=== PATIENT | female | born 1940 | race Caucasian/White ===

== ENCOUNTER → 2022-01-02 08:43 | Outpatient (BNVA) | payer MEDICARE, OTHER, SELFPAY | PROVIDERS: Family Provider Family Medicine; PCP Family Medicine; Visit Provider Anesthesiology Pain Medicine | DX: M51.17 Intervertebral disc disorders with radiculopathy, lumbosacral region (principal); M43.26 Fusion of spine, lumbar region; M53.3 Sacrococcygeal disorders, not elsewhere classified; S32.000A Wedge compression fracture of unspecified lumbar vertebra, initial encounter for closed fracture; X58.XXXA Exposure to other specified factors, initial encounter | CPT/HCPCS: 99205 ==

== ENCOUNTER → 2022-01-23 14:10 | Outpatient (BNVA) | payer MEDICARE, OTHER, SELFPAY | PROVIDERS: Family Provider Family Medicine; PCP Family Medicine; Visit Provider Anesthesiology Pain Medicine | DX: M53.3 Sacrococcygeal disorders, not elsewhere classified (principal) | CPT/HCPCS: G0260; J1030; J3490 ==

== ENCOUNTER → 2022-02-06 09:58 | Outpatient (BNVA) | payer MEDICARE, OTHER, SELFPAY | PROVIDERS: Family Provider Family Medicine; PCP Family Medicine; Visit Provider Anesthesiology Pain Medicine | DX: M43.26 Fusion of spine, lumbar region (principal); M53.3 Sacrococcygeal disorders, not elsewhere classified; S32.000A Wedge compression fracture of unspecified lumbar vertebra, initial encounter for closed fracture; M79.604 Pain in right leg; M79.605 Pain in left leg; X58.XXXA Exposure to other specified factors, initial encounter | CPT/HCPCS: 99213 ==

== ENCOUNTER → 2022-04-03 10:43 | Outpatient (BNVA) | payer MEDICARE, OTHER, SELFPAY | PROVIDERS: Family Provider Family Medicine; PCP Family Medicine; Visit Provider Anesthesiology Pain Medicine | DX: M43.26 Fusion of spine, lumbar region (principal); M53.3 Sacrococcygeal disorders, not elsewhere classified; S32.000A Wedge compression fracture of unspecified lumbar vertebra, initial encounter for closed fracture; X58.XXXA Exposure to other specified factors, initial encounter; M25.561 Pain in right knee; M25.562 Pain in left knee | CPT/HCPCS: 99213 ==

== ENCOUNTER 2022-07-21 12:52 | Emergency (ER) | payer MEDICARE, OTHER, SELFPAY ==
[2022-07-21 13:17] VITALS: BP 127/75; PULSE 86; RESP 16; TEMP 36.5; O2SAT 95; BMI 27.8
--- NOTE | 2022-07-21 13:24 | ED_ITS ---
HPI - Extremity Problem General: Chief complaint: Extremity Injury, Upper Stated complaint: fall, left wrist injury Time Seen by Provider: 07/21/22 13:23 Source: patient Mode of arrival: ambulatory Limitations: other (hard of hearing) History of Present Illness: 81-year-old female presents to the ER today for left wrist pain after falling this morning. Patient reports she tripped and fell and landed on the left wrist. She reports she had immediate pain and swelling in that wrist. She reports she has pain with any movement of the wrist. She has not taking thing for the pain at this time. Patient reports she did fall and hit her head also however denies any dizziness, loss of consciousness, abrasions or bumps on the head. Patient denies taking any blood thinners. Patient denies any changes in vision or blurry vision at this time. Denies any mental status changes. Review of Systems General: Reports: 10 or more systems reviewed and unremarkable except in HPI and below PFSH ED PFSH: Medical History Low back pain Wedge compression fracture of unspecified lumbar vertebra, initial encounter for closed fracture Surgical History Arthrodesis status Social History Smoking and tobacco status: never smoked Second hand smoke exposure: No Alcohol intake: never History of recent travel: No Physical Exam Const: COMMON NORMALS: no acute distress, average body habitus, patient oriented x3, no limitations (hard of hearing), healthy appearing, alert and well nourished Resp: COMMON NORMALS: normal respiratory effort EFFORT & INSPECTION: Yes able to speak in complete sentences Cardio: COMMON NORMALS: regular rate and regular rhythm RATE: regular rate RHYTHM: regular rhythm Extremity: NARRATIVE EXTREMITY EXAM: Patient has a deformity noted of the left wrist. There is tenderness over the distal left radius. No obvious bruising at this time. Moderate swelling noted. Pain with any range of motion of the wrist. Neuro: COMMON NORMALS: patient oriented x3 SENSORIUM/ORIENTATION: Yes alert Psych: COMMON NORMALS: mental status grossly normal, Normal thought process present and cooperative THOUGHT PROCESS: Normal thought process present Skin: COMMON NORMALS: no rashes or lesions noted and no wounds GENERAL SKIN EXAM: no rashes or lesions noted Course ED course: 81-year-old female presents to the ER today for left wrist pain after falling this morning. Patient reports she tripped and fell and landed on the left wrist. She reports she had immediate pain and swelling in that wrist. She reports she has pain with any movement of the wrist. She has not taking thing for the pain at this time. Patient reports she did fall and hit her head also however denies any dizziness, loss of consciousness, abrasions or bumps on the head. Patient denies taking any blood thinners. Patient denies any changes in vision or blurry vision at this time. Denies any mental status changes. We will get an x-ray of the wrist at this time. Patient did hit her head however has no concerns for a bleed. Patient is not currently on blood thinners either. Patient does not wish to have a further exam of her head. Vital Signs: Vital signs: Vital Signs Temperature 97.7 F 07/21/22 13:17 Pulse Rate 86 07/21/22 13:17 Respiratory Rate 16 07/21/22 13:17 Blood Pressure 127/75 07/21/22 13:17 Pulse Oximetry 95 07/21/22 13:17 Oxygen Delivery Me thod 07/21/22 13:17 MDM - Extremity (Nontraumatic) Medical Decision Making 81-year-old female presents to the ER today after a fall this morning. Patient has a deformity of the left wrist along with tenderness. We will get an x-ray at this time. On x-ray, patient has a fracture of the distal radius and ulna. This has very minimal if any displacement. No angulation noted. Patient has an ulnar styloid fracture. Patient's pain is tolerable at this time. We will place patient in a short arm splint. Splint care discussed. Patient should f ollow-up with Ortho next week. Recommend rest, ice, elevation. Take [id number] medications for pain relief. Return to the ER with any new or worsening symptoms. Patient verbalized understanding and was in agreement with the treatment plan. Lab Data Radiology Impressions Wrist X-Ray 07/21/22 13:24 Impression: 1. Fracture of the distal left radius and ulnar styloid. Critical Care Time Critical Care Time: Critical Care Time: No Discharge Plan Discharge Patient Disposition: Home Clinical Impression: Fracture of distal end of left radius and ulna Qualifiers: Encounter type: initial encounter Fracture type: closed Qualified Code(s): S52.502A - Unspecified fracture of the lower end of left radius, initial encounter for closed fracture Condition: Stable Prescriptions: No Action calcium citrate-vitamin D3 [Citracal + D Maximum] 315 mg-6.25 mcg (250 unit) tablet 1 tab PO DAILY betamethasone dipropionate 0.05 % cream 1 applic topical BID PRN docusate sodium 100 mg capsule 100 mg PO BID estradiol 0.01 % (0.1 mg/gram) cream 1 g vaginal .3 TIMES A WEEK Rx Instructions: for 14 days fexofenadine [Allergy Relief (fexofenadine)] 180 mg tablet 180 mg PO DAILY lisinopril-hydrochlorothiazide 20-25 mg tablet 1 tab PO DAILY potassium chloride [Klor-Con M20] 20 mEq tablet,ER particles/crystals 20 meq PO DAILY levothyroxine 75 mcg tablet 75 mcg PO DAILY paroxetine HCl 20 mg tablet 20 mg PO DAILY pantoprazole [Protonix] 40 mg tablet,delayed release (DR/EC) 40 mg PO DAILY simvastatin 80 mg tablet 80 mg PO DAILY cholecalciferol (vitamin D3) 125 mcg (5,000 unit) capsule 125 mcg PO DAILY gabapentin 100 mg capsule 100 mg PO BID Qty: 60 0RF Discharge Orders: Discharge ED (Routine); Ordered 07/21/22 Ordered By: Ange Mcdonald Discharge Diet: Usual diet Discharge Activity: Limit activity as instructed Patient Instructions: Opioid Safety, Pain Management Activity Restrictions/Additional Instructions: Wear splint and do not get wet. Follow-up with Ortho next week. Apply ice to reduce swelling. Take ibuprofen alternated with Tylenol for pain. Return to the ER with any new or worsening symptoms. Coding Level of Care Code ED [employer]ault Custodian for Ruby Fwghulam Exam Detailed
--- NOTE | 2022-07-21 13:24 | XR_ITS ---
WS: [id number] Left wrist, 3 views, 07/21/2022 Clinical Data: fall with deformity Comparison: None. Findings: There is a comminuted fracture of the distal left radius. There is a simple fracture of the ulnar sty loid. The carpal bones are intact. XR/XR wrist LT min 3V* [id number] Impression: 1. Fracture of the distal left radius and ulnar styloid.
[2022-07-21 14:30] VITALS: BP 113/63; PULSE 86; RESP 16; TEMP 36.5; O2SAT 93
--- NOTE | 2022-07-24 08:30 | DCPLANNER ---
Addendum entered by Clare Contreras 07/25/22 14:04: Patient had a follow up appointment scheduled with ortho - patient did attend appointment. Original Note: logistics operations manager had message to schedule a follow up appointment for patient with ortho. logistics operations manager sent patients information to the front office staff at ortho. Patients information will be printed and reviewed. Clinic will call patient with appointment information.
== END 2022-07-21 14:33 | disposition home or self-care (01) ==
PROVIDERS: Emergency Provider Physician Assistant
DX: S52.502A Unspecified fracture of the lower end of left radius, initial encounter for closed fracture (principal); W01.0XXA Fall on same level from slipping, tripping and stumbling without subsequent striking against object, initial encounter
CPT/HCPCS: 29125; 73110; 99283

== ENCOUNTER → 2022-07-25 08:54 | Outpatient (BNVA) | payer MEDICARE, OTHER, SELFPAY | PROVIDERS: Referring Provider Physician Assistant; Visit Provider Physician Assistant | DX: S52.572A Other intraarticular fracture of lower end of left radius, initial encounter for closed fracture (principal); S52.615A Nondisplaced fracture of left ulna styloid process, initial encounter for closed fracture; M13.842 Other specified arthritis, left hand; W19.XXXA Unspecified fall, initial encounter | CPT/HCPCS: 25600; 73110; 99203 ==

== ENCOUNTER 2022-07-25 10:08 | Outpatient (CLI) | payer MEDICARE, OTHER, SELFPAY | END 2022-07-25 10:09 | disposition home or self-care (01) | LOC: SPT 10:10 | PROVIDERS: Visit Provider Physician Assistant | DX: Z46.89 Encounter for fitting and adjustment of other specified devices (principal); S52.502S Unspecified fracture of the lower end of left radius, sequela; S52.602S Unspecified fracture of lower end of left ulna, sequela; X58.XXXS Exposure to other specified factors, sequela | CPT/HCPCS: 97760; L3982 ==

== ENCOUNTER → 2022-08-01 08:57 | Outpatient (BNVA) | payer MEDICARE, OTHER, SELFPAY | PROVIDERS: Visit Provider Physician Assistant | DX: S52.572D Other intraarticular fracture of lower end of left radius, subsequent encounter for closed fracture with routine healing (principal); S52.615D Nondisplaced fracture of left ulna styloid process, subsequent encounter for closed fracture with routine healing; M13.842 Other specified arthritis, left hand; W19.XXXD Unspecified fall, subsequent encounter | CPT/HCPCS: 73110; 99024; 99212 ==

== ENCOUNTER → 2022-08-22 09:47 | Outpatient (BNVA) | payer MEDICARE, OTHER, SELFPAY | PROVIDERS: Visit Provider Physician Assistant | DX: S52.502A Unspecified fracture of the lower end of left radius, initial encounter for closed fracture (principal); S52.602A Unspecified fracture of lower end of left ulna, initial encounter for closed fracture; W19.XXXD Unspecified fall, subsequent encounter | CPT/HCPCS: 73110; 99024; 99212 ==

== ENCOUNTER 2022-08-22 14:29 | Outpatient (CLI) | payer MEDICARE, OTHER, SELFPAY | END 2022-08-22 14:30 | disposition home or self-care (01) | LOC: SPT 14:30 | PROVIDERS: Visit Provider Physician Assistant | DX: Z46.89 Encounter for fitting and adjustment of other specified devices (principal); S52.502D Unspecified fracture of the lower end of left radius, subsequent encounter for closed fracture with routine healing; S52.602D Unspecified fracture of lower end of left ulna, subsequent encounter for closed fracture with routine healing; X58.XXXD Exposure to other specified factors, subsequent encounter | CPT/HCPCS: 97760; L3908 ==

== ENCOUNTER → 2022-09-05 09:38 | Outpatient (BNVA) | payer MEDICARE, OTHER, SELFPAY | PROVIDERS: Visit Provider Physician Assistant | DX: S52.502D Unspecified fracture of the lower end of left radius, subsequent encounter for closed fracture with routine healing (principal); S52.602D Unspecified fracture of lower end of left ulna, subsequent encounter for closed fracture with routine healing; W19.XXXD Unspecified fall, subsequent encounter | CPT/HCPCS: 73110; 99212 ==

== ENCOUNTER → 2024-12-22 08:09 | Outpatient (BNVA) | payer MEDICARE, OTHER, SELFPAY | PROVIDERS: PCP Family Medicine; Visit Provider Orthopaedic Surgery | DX: M25.551 Pain in right hip (principal); M70.71 Other bursitis of hip, right hip | CPT/HCPCS: 73502; 99204 ==

== ENCOUNTER → 2025-01-12 07:42 | Outpatient (BNVA) | payer MEDICARE, OTHER, SELFPAY | PROVIDERS: PCP Family Medicine; Visit Provider Orthopaedic Surgery | DX: M70.61 Trochanteric bursitis, right hip (principal) | CPT/HCPCS: 99213 ==

== ENCOUNTER → 2025-02-03 14:02 | Outpatient (BNVA) | payer MEDICARE, OTHER, SELFPAY | PROVIDERS: PCP Family Medicine; Visit Provider Family Medicine | DX: E03.9 Hypothyroidism, unspecified (principal) | CPT/HCPCS: 84439; 84443 ==

== ENCOUNTER → 2025-02-09 10:58 | Outpatient (BNVA) | payer MEDICARE, OTHER, SELFPAY | PROVIDERS: PCP Family Medicine; Visit Provider Orthopaedic Surgery | DX: M70.61 Trochanteric bursitis, right hip (principal) | CPT/HCPCS: 99213 ==

== ENCOUNTER → 2025-03-02 13:11 | Outpatient (BNVA) | payer MEDICARE, OTHER, SELFPAY | PROVIDERS: PCP Family Medicine; Visit Provider Family Medicine | DX: R39.9 Unspecified symptoms and signs involving the genitourinary system (principal) | CPT/HCPCS: 81000 ==

== ENCOUNTER → 2025-03-24 10:57 | Outpatient (BNVA) | payer MEDICARE, OTHER, SELFPAY | PROVIDERS: PCP Family Medicine; Visit Provider Registered Nurse Neonatal Intensive Care | DX: R39.9 Unspecified symptoms and signs involving the genitourinary system (principal) | CPT/HCPCS: 81000; 87086 ==

== ENCOUNTER → 2025-04-09 14:19 | Outpatient (BNVA) | payer MEDICARE, OTHER, SELFPAY | PROVIDERS: PCP Family Medicine; Visit Provider Family Medicine | DX: I10 Essential (primary) hypertension (principal); E78.00 Pure hypercholesterolemia, unspecified; E03.9 Hypothyroidism, unspecified; N39.0 Urinary tract infection, site not specified; R39.9 Unspecified symptoms and signs involving the genitourinary system | CPT/HCPCS: 80053; 80061; 83630; 84439; 84443; 87086; 87493 ==

== ENCOUNTER 2025-04-10 09:02 | Outpatient (CLI) | payer MEDICARE, OTHER, SELFPAY | END 2025-04-10 09:03 | disposition home or self-care (01) | LOC: LAB 09:03 | PROVIDERS: PCP Family Medicine; Visit Provider Family Medicine | DX: R19.7 Diarrhea, unspecified (principal) | CPT/HCPCS: 83630 ==

== ENCOUNTER → 2025-05-02 10:39 | Outpatient (BNVA) | payer MEDICARE, OTHER, SELFPAY | PROVIDERS: PCP Family Medicine; Visit Provider Registered Nurse Neonatal Intensive Care | DX: R30.0 Dysuria (principal) | CPT/HCPCS: 81000; 87086 ==

== ENCOUNTER 2025-05-17 12:47 | Emergency (ER) | payer MEDICARE, OTHER, SELFPAY ==
[2025-05-17] VITALS (9 sets, daily range): BP systolic 136–181; BP diastolic 60–95; PULSE 61–71; RESP 16; TEMP 36.6; O2SAT 93–97; BMI 28.0
--- OUTSIDE RECORDS SUMMARY | 2025-05-17 12:52 | XMS_ITS | Clinical Summary ---
Author Organization [facility] Address [address] [address] Phone Care Team Providers Care Manager Transfusion Name Role Phone BuchananLeilani gallagher Primary Care Provider [phone] Allergies No known active allergies Medications lisinopril-hydroc hlorothiazide (ZESTORETIC) 20-25 mg Oral tablet Take 1.5 Tabs by mouth daily. Active PARoxetine HCl (PAXIL) 20 mg Oral tablet Take 20 mg by mouth daily. Active simvastatin (ZOCOR) 80 mg Oral tablet Take 80 mg by mouth Daily LATE. 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 Active omeprazole (PRILOSEC) 20 mg Oral CpDR Take 20 mg by mouth daily. Active Potassium 99 mg Tablet Take 1 Tablet by mouth 2 times daily. Active fexofenadine (ASAF) 180 mg tablet Take 180 mg by mouth 1 time daily as needed for Allergies. Active aspirin (ECOTRIN EC) 81 mg Tablet, Delayed Release (E.C.) Take 81 mg by mouth daily. Active ketorolac tromethamine (Acular) 0.5 % solution Administer 1 Drop in both eyes 4 times daily as needed for Pain. Active betamethasone, augmented (DIPROLENE-AF) 0.05 % Cream Apply to affected area 2 times daily as needed. Active calcium carbonate + vitamin D (CALTRATE+D) 600 mg(1,500mg) -400 unit Tablet Take 1 Tablet by mouth 3 times daily. Active yykkz-5-MUA-EPA-f sonia oil (Fish Oil) 1,000 mg Capsule Take 1 Capsule by mouth 3 times daily. 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 [employer] Gender Identity Not on file Sexual Orientation Not on file Last Filed Vital Signs Vital Sign Reading Time Taken Comments Blood Pressure 139/57 04/14/2021 12:49 PM CDT Pulse 74 03/14/2012 1:05 PM CDT Temperature 36.2 C (97.1 F) 04/14/2021 12:49 PM CDT Respiratory Rate 18 04/14/2021 12:49 PM CDT Oxygen Saturation 94% 04/14/2021 12:49 PM CDT Inhaled Oxygen Concentration - - Weight 70.4 kg (155 lb 3.2 oz) 04/14/2021 11:25 AM CDT Height 162.6 cm (5' 4 ) 04/14/2021 11:25 AM CDT Body Mass Index 26.64 04/14/2021 11:25 AM CDT Plan of Treatment Health Maintenance Due Date Last Done Comments ZOSTER VACCINE (1 of 2) 1988 OSTEOPOROSIS SCREENING 2003 DTAP/TDAP/TD VACCINES (1 - Tdap) 09/29/2010 09/28/20, 11/14/2000 RSV VACCINE (60+ or ) (1 - 1-dose 75+ series) 2013 INFLUENZA VACCINE (#1) 2025 9, 08/28/2018, 08/14/2017, Additional history exists PNEUMOCOCCAL VACCINE 50+ YEARS Completed 0 11/27/2017, 03/03/2009, 02/02/2004 Insurance MEDICARE PART [place] Care Teams Manager Transfusion Relationship Specialty Start Date End Date Leilani Buchanan DO [address] [place] [id number] PCP - General 12/30/15
--- OUTSIDE RECORDS SUMMARY | 2025-05-17 12:53 | XMS_ITS | Clinical Summary ---
Author Organization [facility] Address [address] [address] Phone Care Team Providers Care Diesel Dinkey Operator Name Role Phone BuchananLeilani gallagher Primary Care Provider [phone] Allergies No known active allergies Medications calcium carbonate + vitamin D (CALTRATE+D) 600 mg-10 mcg (400 unit) Tablet Take 1 Tablet by mouth 3 times daily. 1 Active aspirin (ECOTRIN EC) 81 mg Tablet, Delayed Release (E.C.) Take 81 mg by mouth daily. 1 Active Potassium 99 mg Tablet Take 1 Tablet by mouth 2 times daily. 1 Active fexofenadine (ASAF) 180 mg tablet Take 180 mg by mouth 1 time daily as needed for Allergies. 1 Active mzrhd-2-LFZ-EPA-f sonia oil 1,000 mg Capsule Take 1 Capsule by mouth 3 times daily. 1 Active ketorolac tromethamine (ACULAR) 0.5 % solution Administer 1 Drop in both eyes 4 times daily as needed for Pain. 1 Active betamethasone, augmented (DIPROLENE-AF) 0.05 % Cream Apply to affected area 2 times daily as needed. 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 Gender Identity Not on file Sexual Orientation Not on file Last Filed Vital Signs Vital Sign Reading Time Taken Comments Blood Pressure 153/55 02/29/2024 1:51 PM CDT Pulse 74 02/29/2024 1:51 PM CDT Temperature 36.6 C (97.8 F) 02/29/2024 1:51 PM CDT Respiratory Rate 18 02/29/2024 1:51 PM CDT Oxygen Saturation 97% 02/29/2024 1:51 PM CDT Inhaled Oxygen Concentration - - Weight 70.4 kg (155 lb 3.2 oz) 04/14/2021 11:25 AM CDT Height 162.6 cm (5' 4 ) 04/14/2021 11:25 AM CDT Body Mass Index 26.64 04/14/2021 11:25 AM CDT Plan of Treatment Health Maintenance Due Date Last Done Comments DTAP/TDAP/TD VACCINES (1 - Tdap) 1957 PNEUMOCOCCAL VACCINE 50+ YEARS (1 of 1 - PCV) 10/04/19 88 ZOSTER VACCINE (1 of 2) 1988 OSTEOPOROSIS SCREENING 2003 RSV VACCINE (60+ or ) (1 - 1-dose 75+ series) 2013 INFLUENZA VACCINE (#1) 2025 Insurance [place] MEDICARE PART A AND B Care Teams Diesel Dinkey Operator Relationship Specialty Start Date End Date Leilani Buchanan DO [address] [facility] [place] [id number] PCP - General 12/30/15
--- NOTE | 2025-05-17 13:22 | CTR_ITS ---
PROCEDURE INFORMATION: Exam: CT Abdomen And Pelvis Without Contrast Exam date and time: 05/17/2025 1:51 PM Age: 84 years old Clinical indication: Abdominal pain; Other: Chandu. Flank pain; Prior surgery; Surgery date: 6+ months; Surgery type: Back, tubal bladder; Had bladder CA; Additional info: Bilat flank pain, question of renal colic TECHNIQUE: Imaging protocol: Computed tomography of the abdomen and pelvis without contrast. Radiation optimization: All CT scans at this facility use at least one of these dose optimization techniques: automated exposure control; mA and/or kV adjustment per patient size (includes targeted exams where dose is matched to clinical indication); or iterative reconstruction. COMPARISON: CR XR hip RT 2-3V wo/w pel* [id number] 12/22/2024 8:11 AM RADIATION DOSE METRICS: Total DLP (mGy-cm): 598.12 FINDINGS: Lungs: Minimal dependent atelectasis is seen in the lung bases. Lung bases otherwise appear clear. Coronary arteries: Coronary artery calcification is present. Liver: Normal appearance of the liver. Gallbladder and biliary ducts: Cholelithiasis is present in the gallbladder. No evidence of cholecystitis. Pancreas: Normal appearance of the pancreas. No ductal dilation. Spleen: Normal appearance of the spleen. Adrenal glands: Normal appearance of both adrenal glands. Kidneys and ureters: Incidental homogeneous hyperdense cyst on the right kidney measuring approximately 1.7 cm with internal density greater than 80 Hounsfield units. Otherwise normal appearance of the kidneys. No hydronephrosis or nephrolithiasis.Normal appearance of both ureters without hydroureter or ureteral stone. Stomach and bowel: Tiny hiatal hernia of the stomach.Normal appearance of the small bowel without luminal dilation suggested. Mild colonic stool throughout. Appendix: No evidence of appendicitis. Intraperitoneal space: Unremarkable. No free air. No significant fluid collection. Vasculature: Pelvic calcifications, likely representing incidental phleboliths. There is mild calcific atherosclerotic disease of the abdominal aorta. No evidence of an aneurysm. Lymph nodes: Unremarkable. No enlarged lymph nodes. Urinary bladder: Normal appearance of the urinary bladder. No intravesicular stone. Reproductive: Unremarkable uterus and adnexa. Bones/joints: Remote prior healed fractures of the lateral right 6th and 7th ribs. No acute rib fracture is seen. Prior posterior spinal fixation from L1 through L5 with laminectomy at L2-L3 spanning a moderate compression deformity of the L3 vertebral body which has posterior extension into the spinal canal. No prior comparison available. No acute spinal fracture is suggested. Soft tissues: The visualized superficial soft tissues have a normal appearance. CT/CT abdomen pelvis wo con [id number] IMPRESSION: 1. No evidence of acute intra-abdominal or pelvic pathology on this noncontrast exam. Specifically, no evidence of a urinary tract stone. 2.Other incidental and/or chronic findings as detailed above. COMMENTS: Consistent with the [employer]'s Incidental Findings Committee white paper (J Am Jono Radiol 2018): Any incidental homogeneous renal lesion on CT which does not contain fat and has hounsfeld units (HU) between -10 to 20 does not require further evaluation. Lesions with HU 70+ on a noncontrast CT do not require further evaluation. No follow-up imaging is recommended for these lesions per consensus recommendations based on imaging criteria.
--- NOTE | 2025-05-17 13:23 | W.ED.FEMALGU ---
HPI - Female Genitourinary General: Chief complaint: Urogenital-Female Stated complaint: weakess, fatigue History of Present Illness: Patient is a pleasant 84-year-old female with history of frequent UTIs, presents to the emergency room due to bilateral flank pain, ongoing, waxing and waning in symptoms, chills, feeling as if she has a fever. She has not had nausea, or vomiting. Initially, patient started having bilateral flank pain without the remainder of symptoms above, on 05/02. She was given Augmentin, and urine culture noted Klebsiella pneumoniae that was sensitive. Patient states she has had this ongoing pain, and the addition to feeling as if she has had a fever and chills in the last 24 hours. Associated symptoms: Reports abdominal pain, headache(s) and nausea Related Data Home Medications ?Medication ?Instructions ?Recorded ?Confirmed calcium 315 mg (as 1 tab PO DAILY 01/02/22 05/02/25 citrate)-vitamin D3 6.25 mcg (250 unit) tablet (Citracal + Vitamin D Maximum) cholecalciferol (vitamin D3) 125 125 mcg PO DAILY 01/02/22 05/02/25 mcg (5,000 unit) capsule docusate sodium 100 mg capsule 100 mg PO BID 01/02/22 05/02/25 estradiol 0.01% (0.1 mg/gram) 1 g vaginal .3 TIMES A WEEK 01/02/22 05/02/25 vaginal cream lisinopril 20 1 tab PO DAILY 01/02/22 05/02/25 mg-hydrochlorothiazide 25 mg tablet potassium chloride 20 mEq 20 meq PO DAILY 01/02/22 05/02/25 tablet,extended release(part/cryst) (Klor-Con M) lisinopril 20 1.5 tab PO DAILY 02/03/25 05/02/25 mg-hydrochlorothiazide 25 mg tablet potassium chloride 20 mEq 20 meq PO BID 02/03/25 05/02/25 tablet,extended release(part/cryst) (Klor-Con M) Previous Rx's ?Medication ?Instructions ?Recorded levothyroxine 100 mcg tablet 100 mcg PO DAILY #90 tabs 02/03/25 (Synthroid) paroxetine HCl 10 mg tablet 10 mg PO DAILY #90 tabs 02/03/25 atorvastatin 20 mg tablet (Lipitor) 20 mg PO DAILY #90 tabs 02/18/25 nitrofurantoin macrocrystal 50 mg 50 mg PO DAILY #100 caps 04/09/25 capsule amoxicillin 875 mg-potassium 1 tab PO BID 7 days #14 tabs 05/02/25 clavulanate 125 mg tablet cefdinir 300 mg capsule 300 mg PO BID 10 days #20 caps 05/17/25 Allergies Allergy/AdvReac Type Severity Reaction Status Date / Time No Known Drug Allergies Allergy Unknown Verified 05/02/25 10:27 Review of Systems General: Reports: 10 or more systems reviewed and unremarkable except in HPI and below Const: Reports: fever(s) and chills Eyes: Denies: change in vision or blurry vision ENMT: Denies: throat pain or mouth pain Card: Denies: chest pain or palpitations Resp: Denies: dyspnea or non-productive cough GI: Reports: abdominal pain and nausea; Denies: vomiting : Reports: flank pain, difficulty voiding and urinary frequency; Denies: dysuria Musc: Reports: back pain; Denies: neck pain, extremity pain or extremity swelling Skin/Breast: Denies: rash or pruritus Neuro: Reports: headache(s); Denies: numbness in extremities or weakness in extremities Psych: Denies: anxiety or depression PFSH ED PFSH: Medical History (Updated 05/17/25 @ 17:00 by RAFAEL Hayden) Diarrhea Recurrent UTI Elevated uric acid in blood Osteoporosis fosamax stopped 5.18.11 after 9 yrs of use; last DEXA 3.6.24--getting Prolia Q 6 months Prediabetes Chronic GERD without esophagitis Peripheral neuropathy feet Cervical spondylosis Bladder cancer sees Dr. Whalen urologist at [facility] Mild major depression Hypokalemia Hypertension Hypercholesterolemia Hypothyroidism (acquired) Wedge compression fracture of unspecified lumbar vertebra, initial encounter for closed fracture Low back pain Surgical History Hx of colonoscopy 11.5.21 Hx of esophagogastroduodenoscopy 11.5.21 Hx of removal of cyst N[place] 2001 Hx of tubal ligation Hx of bilateral cataract extraction History of bladder surgery sees DR. Whalen urologist at [facility], for bladder cancer History of lumbar spinal fusion Arthrodesis status Family History Father Stroke Mother No problems noted. Brother Diabetes mellitus, type 2 Social History Smoking and tobacco/nicotine status: never used tobacco/nicotine Second hand smoke exposure: No Alcohol intake: never Substance/Drug Use: never Household members: spouse Marital status: Number of children: 5 Highest education level completed: High School Graduate Current occupational status: retired Previous occupational history: [employer] Physical Exam Const: COMMON NORMALS: no acute distress, average body habitus and patient oriented x3 GENERAL APPEARANCE: cooperative ORIENTATION/CONSCIOUSNESS: Yes awake HENMT: COMMON NORMALS: normocephalic and atraumatic HEAD & SCALP: normocephalic and atraumatic Eye: COMMON NORMALS: Equal, round and reactive pupils present, EOMs intact bilaterally and conjunctivae normal CONJUNCTIVA: Yes conjunctivae normal PUPIL: Yes Equal, round and reactive pupils present Neck/C-Spine: COMMON NORMALS: full ROM, no lymphadenopathy and supple Lymph: LYMPHATIC: no lymphadenopathy noted Chest: COMMONS NORMALS: normal inspection of the chest and normal palpation of entire chest wall Resp: COMMON NORMALS: normal respiratory effort and No retractions Cardio: COMMON NORMALS: regular rate and regular rhythm RATE: regular rate RHYTHM: regular rhythm GI: COMMON NORMALS: Normal to inspection, nondistended, normoactive bowel sounds present, Soft to palpation and non-tender PALPATION: Yes Soft to palpation : BLADDER/KIDNEY EXAM: Yes CVA tenderness bilateral Back/Pelvis: GENERAL BACK: Yes CVA tenderness Extremity: COMMON NORMALS: normal to inspection, full ROM and capillary refill normal Neuro: COMMON NORMALS: patient oriented x3 Psych: COMMON NORMALS: mental status grossly normal and Normal thought process present THOUGHT PROCESS: Normal thought process present Course Reevaluation(s): Reevaluation #1: Improved after IV fluids Vital Signs: Vital signs: Vital Signs Temperature 97.9 F 05/17/25 12:56 Pulse Rate 63 05/17/25 17:11 Respiratory Rate 16 05/17/25 13:13 Blood Pressure 164/76 05/17/25 17:11 Pulse Oximetry 94 05/17/25 17:11 Oxygen Delivery Me thod Room Air 05/17/25 16:00 MDM - Female Medical Decision Making 84-year-old female diagnosed with Klebsiella UTI on 05/02 and received full course of Augmentin that was completed with ongoing flank pain, without change, no dysuria, however urinary frequency, headache, chills, and fever have been added. Augmentin was sensitive on bio Ángel. Will repeat urine analysis and expand workup with labs, lactic acid, and CT to rule out renal colic/infected ureterolithiasis At bedside discussion with patient/niece/ regarding workup: Suspect this is secondary to mild hypovolemia with her hydrochlorothiazide on extremely hot days with heat advisories. Patient is chronically on nitrofurantoin for prophylaxis UTI, however I have advised for her to follow-up with urology to see if they would like for her to continue this since her last myogram was resistant to nitrofurantoin. As well, I have advised her to follow-up with primary care to see if she needs to hold her hydrochlorothiazide in favor of just lisinopril during heat months. Patient will drink additional glass of water prior to taking her medication tomorrow and call for appointment. All of their questions answered to satisfaction. As well, given her history, will give a run of cefdinir, and add culture. Lab Data 05/17/25 13:43 05/17/25 13:43 Radiology Impressions Abdomen/Pelvis CT 05/17/25 13:22 IMPRESSION: 1. No evidence of acute intra-abdominal or pelvic pathology on this noncontrast exam. Specifically, no evidence of a urinary tract stone. 2.Other incidental and/or chronic findings as detailed above. COMMENTS: Consistent with the [employer]'s Incidental Findings Committee white paper (J Am Jono Radiol 2018): Any incidental homogeneous renal lesion on CT which does not contain fat and has hounsfeld units (HU) between -10 to 20 does not require further evaluation. Lesions with HU 70+ on a noncontrast CT do not require further evaluation. No follow-up imaging is recommended for these lesions per consensus recommendations based on imaging criteria. Laboratory Results WBC 5.38 10^3/uL (3.29-11.43) 05/17/25 13:43 RBC 4.13 10^6/uL (3.85-5.65) 05/17/25 13:43 Hgb 12.90 g/dL (11.27-16.99) 05/17/25 13:43 Hct 38.2 % (36-47) 05/17/25 13:43 MCV 92.5 fl (85-98) 05/17/25 13:43 MCH 31.2 pg (27-33) 05/17/25 13:43 MCHC 33.8 g/dL (30-55) 05/17/25 13:43 RDW 12.8 % (12.1-15.1) 05/17/25 13:43 Plt Count 242 10^3/cmm (157-399) 05/17/25 13:43 MPV 9.0 fL (7.4-10.4) 05/17/25 13:43 Neut % (Auto) 57.8 % 05/17/25 13:43 Lymph % (Auto) 31.2 % 05/17/25 13:43 [place] % (Auto) 8.7 % 05/17/25 13:43 Eos % (Auto) 0.6 % 05/17/25 13:43 Baso % (Auto) 1.3 % 05/17/25 13:43 Neut # (Auto) 3.11 10^3/uL (1.8-7.7) 05/17/25 13:43 Lymph # (Auto) 1.7 10^3/uL (0.8-4.8) 05/17/25 13:43 [place] # (Auto) 0.5 10^3/uL (0.2-0.9) 05/17/25 13:43 Eos # (Auto) 0.0 10^3/uL (0.0-0.8) 05/17/25 13:43 Baso # (Auto) 0.1 10^3/uL (0.0-0.1) 05/17/25 13:43 Nucleated RBC % (auto) 0 % 05/17/25 13:43 Nucleated RBCs # 0.0 /100WBC 05/17/25 13:43 Sodium 135 mmol/L (136-145) L 05/17/25 13:43 Potassium 3.5 mmol/L (3.5-5.1) 05/17/25 13:43 Chloride 99 mmol/L (98-107) 05/17/25 13:43 Carbon Dioxide 25 mmol/L (22-29) 05/17/25 13:43 Anion Gap 14.5 (5-19) 05/17/25 13:43 BUN 13 mg/dL (8-23) 05/17/25 13:43 Creatinine 0.8 mg/dL (0.5-0.9) 05/17/25 13:43 GFR Calculation Not Reportable 05/17/25 13:43 Glucose 121 mg/dL (65-115) H 05/17/25 13:43 Calculated Osmolality 281 mOsm/kg (285-295) L 05/17/25 13:43 Lactic Acid 1.1 mmol/L (0.5-2.2) 05/17/25 13:43 Calcium 8.7 mg/dL (8.5-10.5) 05/17/25 13:43 Total Bilirubin 0.4 mg/dL (0.15-1.2) 05/17/25 13:43 AST 18 U/L (0-32) 05/17/25 13:43 ALT 11 U/L (0-33) 05/17/25 13:43 Alkaline Phosphatase 142 U/L (35-105) H 05/17/25 13:43 Total Protein 6.6 g/dL (6.6-8.7) 05/17/25 13:43 Albumin 3.7 g/dL (3.5-5.2) 05/17/25 13:43 Globulin 2.9 g/dL (1.3-4.6) 05/17/25 13:43 Lipase 34 U/L (13-60) 05/17/25 13:43 Urine Color Yellow (Yellow) 05/17/25 13:30 Urine Appearance Clear (CLEAR) 05/17/25 13:30 Urine pH 8.0 (5-7) A 05/17/25 13:30 Ur Specific [place] 1.011 (1.005-1.030) 05/17/25 13:30 Urine Protein Negative (Negative) 05/17/25 13:30 Urine Glucose (UA) Negative (Normal) 05/17/25 13:30 Urine Ketones Negative (Negative) 05/17/25 13:30 Urine Blood Negative (Negative) 05/17/25 13:30 Urine Nitrate Negative (Negative) 05/17/25 13:30 Urine Bilirubin Negative (Negative) 05/17/25 13:30 Urine Urobilinogen 1.0 mg/dL (Negative) 05/17/25 13:30 Ur Leukocyte Esterase 3+ (Negative) A 05/17/25 13:30 Urine RBC 0-2 /hpf (0-2) 05/17/25 13:30 Urine WBC 11-20 /hpf (0-5) H 05/17/25 13:30 Ur Squamous Epith Cells 11-20 /hpf (0-5) H 05/17/25 13:30 Amorphous Sediment Not Reportable 05/17/25 13:30 Urine Bacteria None seen /hpf (NONE) 05/17/25 13:30 Hyaline Casts 0.81 /lpf 05/17/25 13:30 All radiology interpretation(s) finalized by discharge ED provider radiology interpretation(s): no acute Discharge Plan Discharge Patient Disposition: Home Clinical Impression: Hypovolemia, Pyuria Condition: Stable Prescriptions: New cefdinir 300 mg capsule 300 mg PO BID 10 Days Qty: 20 0RF No Action calcium citrate-vitamin D3 [Citracal + D Maximum] 315 mg-6.25 mcg (250 unit) tablet 1 tab PO DAILY docusate sodium 100 mg capsule 100 mg PO BID estradiol 0.01 % (0.1 mg/gram) cream 1 g vaginal .3 TIMES A WEEK Rx Instructions: for 14 days lisinopril-hydrochlorothiazide 20-25 mg tablet 1 tab PO DAILY potassium chloride [Klor-Con M20] 20 mEq tablet,ER particles/crystals 20 meq PO DAILY cholecalciferol (vitamin D3) 125 mcg (5,000 unit) capsule 125 mcg PO DAILY lisinopril-hydrochlorothiazide 20-25 mg tablet 1.5 tab PO DAILY paroxetine HCl 10 mg tablet 10 mg PO DAILY Qty: 90 0RF potassium chloride [Klor-Con M20] 20 mEq tablet,ER particles/crystals 20 meq PO BID levothyroxine [Synthroid] 100 mcg tablet 100 mcg PO DAILY Qty: 90 0RF nitrofurantoin macrocrystal 50 mg capsule 50 mg PO DAILY Qty: 100 0RF Rx Instructions: must administer with a meal/food; this is from DR. Whalen urologist [place] amoxicillin-pot clavulanate 875-125 mg tablet 1 tab PO BID 7 Days Qty: 14 0RF atorvastatin [Lipitor] 20 mg tablet 20 mg PO DAILY Qty: 90 3RF Discharge Orders: Discharge ED (Routine); Ordered 05/17/25 Ordered By: Madhuri Campbell Referrals: Nati Muniz MD [Primary Care Provider, Family Practice] Discharge Diet: Usual diet Discharge Activity: Resume usual activity Patient Instructions: Dehydration (ED), Patient Portal & [place] Instructions Activity Restrictions/Additional Instructions: Call tomorrow for an appointment with your doctor regarding your lisinopril/hydrochlorothiazide with the question of extreme heat advisory of holding the hydrochlorothiazide and just taking lisinopril during heat months. Take a probiotic or active culture yogurt to avoid infectious diarrhea with antibiotics Your urine will be cultured. In the interim, given your history, you will be receiving an antibiotic that is at the pharmacy as addressed above. Return to ED for continued pain, fever greater 100.4 ?F. Follow-up with your urologist regarding your symptoms today. Print Language: Turkmen Coding Level of Care Code ED Instrument Mechanics Supervisor for Ruby Godfrey
[2025-05-17 14:03] LABS: Hematocrit 38.2 % (36-47); Hemoglobin 12.90 g/dL (11.27-16.99); Mean Corpuscular HGB Conc 33.8 g/dL (30-55); Mean Corpuscular Hemoglobin 31.2 pg (27-33); Mean Corpuscular Volume 92.5 fl (85-98); Nucleated Red Blood Cells % 0 %; Platelet Count 242 10^3/cmm (157-399); Red Blood Count 4.13 10^6/uL (3.85-5.65); White Blood Count 5.38 10^3/uL (3.29-11.43)
[2025-05-17 14:18] LABS: Alanine Aminotransferase 11 U/L (0-33); Albumin Level 3.7 g/dL (3.5-5.2); Alkaline Phosphatase 142 U/L (35-105); Anion Gap 14.5 (5-19); Aspartate Amino Transferase 18 U/L (0-32); Blood Urea Nitrogen 13 mg/dL (8-23); Calcium 8.7 mg/dL (8.5-10.5); Carbon Dioxide 25 mmol/L (22-29); Chloride 99 mmol/L (98-107); Creatinine Clr Calc Pharmacy 46.0753; Globulin 2.9 g/dL (1.3-4.6); Glucose 121 mg/dL (65-115); Lactic Sepsis W/Reflex 1.1 mmol/L (0.5-2.2); Lipase 34 U/L (13-60); Osmolality Calculated 281 mOsm/kg (285-295); Potassium 3.5 mmol/L (3.5-5.1); Sodium 135 mmol/L (136-145); Total Protein 6.6 g/dL (6.6-8.7)
[2025-05-17 14:31] LABS: Glucose Urine UA Negative (Normal); Nitrate Urine Negative (Negative); Specific Gravity, Urine 1.011 (1.005-1.030)
[2025-05-17 14:39] LABS: Add Urine Microscopic? YES
== END 2025-05-17 17:13 | disposition home or self-care (01) ==
PROVIDERS: Emergency Provider Physician Assistant; PCP Family Medicine
DX: E86.1 Hypovolemia (principal); R82.81 Pyuria
CPT/HCPCS: 36415; 74176; 80053; 81001; 83605; 83690; 85025; 87086; 99284; J7030

== ENCOUNTER 2025-09-01 13:28 | Oncology outpatient (recurring) (ONCR) | payer MEDICARE, OTHER, SELFPAY ==
[2025-09-01] MEDS: denosumab-bbdz 60 MG Syringe SUBCUT (13:55)
== END 2025-09-27 23:59 | disposition home or self-care (01) ==
LOC: ONCMED 13:29
PROVIDERS: PCP Family Medicine; Visit Provider Family Medicine
DX: M81.0 Age-related osteoporosis without current pathological fracture (principal); Z79.899 Other long term (current) drug therapy
CPT/HCPCS: 96372; Q5136

== ENCOUNTER → 2025-09-11 13:17 | Outpatient (BNVA) | payer MEDICARE, OTHER, SELFPAY | PROVIDERS: PCP Family Medicine; Visit Provider Family Medicine | DX: R39.9 Unspecified symptoms and signs involving the genitourinary system (principal) | CPT/HCPCS: 81000 ==